=== PATIENT | male | born 1985 ===

== ENCOUNTER 2016-09-25 11:39 | Emergency (ER) | payer MEDICAID ==
[2016-09-25 12:09] VITALS: BP 112/67; PULSE 104; RESP 18; TEMP 99.3; O2SAT 98
--- NOTE | 2016-09-25 12:50 | ED PDOC ---
HPI: CCC, URI, Sore Throat Time Seen by Provider: 09/25/16 12:48 Chief Complaint (Nursing): ENT Problem Chief Complaint (Provider): sore throat History Per: Patient (31 y/o male h/o Cerebral Palsy /hypothyroid here with sore throat x 2 days. Has been spitting saliva due to pain but able to tolerate fluids as per mother. No vomiting/diarrhea. Mother does not want iv for him at this time.) Past Medical History Reviewed: Historical Data, Nursing Documentation, Vital Signs Vital Signs: Last Vital Signs Temp 99.3 F 09/25/16 12:05 Pulse 104 H 09/25/16 12:05 Resp 18 09/25/16 12:05 BP 112/67 09/25/16 12:05 Pulse Ox 98 09/25/16 12:50 - Medical History PMH: Hypothyroidism Denies: Chronic Kidney Disease - Surgical History Surgical History: Hernia Repair - Family History Family History: States: Unknown Family Hx - Home Medications Home Medications: Ambulatory Orders Medication Instructions Recorded Levothyroxine Sodium 175 mcg PO DAILY 02/17/14 Amoxicillin/Clavulanate [Augmentin 1 tab PO BID #14 tab 08/23/16 875 MG-125 MG] Ibuprofen [Motrin Tab] 600 mg PO Q8 PRN #60 tab 08/23/16 Ondansetron [Zofran] 4 mg PO Q8H PRN #30 tab 08/23/16 Amoxicillin 1 tab PO QID #30 tablet 09/25/16 Ibuprofen [Motrin] 1 tab PO Q8 PRN #21 tab 09/25/16 - Allergies Allergies/Adverse Reactions: Allergies Allergy/AdvReac Type Severity Reaction Status Date / Time Sulfa (Sulfonamide Allergy RASH Verified 08/23/16 15:18 Antibiotics) Review of Systems ROS Statement: Except As Marked, All Systems Reviewed And Found Negative ENT: Positive for: Throat Pain Physical Exam - Reviewed Nursing Documentation Reviewed: Yes Vital Signs Reviewed: Yes - Physical Exam Appears: Positive for: Well, Non-toxic, No Acute Distress Head Exam: Positive for: ATRAUMATIC, NORMAL INSPECTION, NORMOCEPHALIC Skin: Positive for: Normal Color, Warm, DRY Eye Exam: Positive for: EOMI, Normal appearance, PERRL ENT: Negative for: Normal ENT Inspection (petecchiae noted.) Neck: Positive for: Normal, Painless ROM Cardiovascular/Chest: Positive for: Regular Rate, Rhythm Respiratory: Positive for: CNT, Normal Breath Sounds Gastrointestinal/Abdominal: Positive for: Normal Exam, Bowel Sounds, Soft Back: Positive for: Normal Inspection Extremity: Positive for: Normal ROM Neurologic/Psych: Positive for: Alert, Oriented - ECG O2 Sat by Pulse Oximetry: 98 - Progress ED Course And Treament: Decadron 10 mg IM x 1 dose Motrin 600 mg x 1 dose Strep A positive. Patient feels improved. Disposition - Clinical Impression Clinical Impression: Pharyngitis - Patient ED Disposition Is Patient to be Admitted: No - Disposition Disposition: Routine/Home Disposition Time: 13:59 Condition: FAIR Prescriptions: Amoxicillin 1 tab PO QID #30 tablet Ibuprofen [Motrin] 1 tab PO Q8 PRN #21 tab PRN Reason: Pain, Moderate (4-7) Instructions: Strep Throat (ED) Forms: [facility] ED School/Work Excuse Print Language: AZERBAIJANI
== END 2016-09-25 14:34 | disposition home or self-care (01) ==
LOC: H.ER 11:39
DX: J02.9 Acute pharyngitis, unspecified (principal); G80.9 Cerebral palsy, unspecified

== ENCOUNTER 2017-06-04 15:32 | Emergency (ER) | payer MEDICAID ==
[2017-06-04 15:39] VITALS: BP 107/66; PULSE 88; RESP 16; TEMP 98.8; O2SAT 10
--- NOTE | 2017-06-04 16:05 | ED PDOC ---
HPI: CCC, URI, Sore Throat Chief Complaint (Nursing): ENT Problem Chief Complaint (Provider): ENT Problem History Per: Patient History/Exam Limitations: no limitations Onset/Duration Of Symptoms: Days (x 2) Current Symptoms Are (Timing): Still Present Location Of Pain: Throat Additional Complaint(s): 32 year old male who presents to the ED complaining of a sore throat, onset 2 days. Patient reports that he experiences pain with speaking and swallowing. Also reports a mild cough. Denies fever. PMD: non [facility] provider Past Medical History Reviewed: Historical Data, Nursing Documentation, Vital Signs Vital Signs: Last Vital Signs Temp 98.8 F 06/04/17 15:36 Pulse 88 06/04/17 15:36 Resp 16 06/04/17 15:36 BP 107/66 06/04/17 15:36 Pulse Ox 10 L 06/04/17 16:10 - Medical History PMH: Hypothyroidism Denies: Chronic Kidney Disease - Surgical History Surgical History: Hernia Repair - Family History Family History: States: Unknown Family Hx - Home Medications Home Medications: Ambulatory Orders Medication Instructions Recorded Levothyroxine Sodium 175 mcg PO DAILY 02/17/14 Amoxicillin/Clavulanate [Augmentin 1 tab PO BID #14 tab 08/23/16 875 MG-125 MG] Ibuprofen [Motrin Tab] 600 mg PO Q8 PRN #60 tab 08/23/16 Ondansetron [Zofran] 4 mg PO Q8H PRN #30 tab 08/23/16 Amoxicillin 1 tab PO QID #30 tablet 09/25/16 Ibuprofen [Motrin] 1 tab PO Q8 PRN #21 tab 09/25/16 Azithromycin [Zithromax] 250 mg PO DAILY #6 tab 06/04/17 - Allergies Allergies/Adverse Reactions: Allergies Allergy/AdvReac Type Severity Reaction Status Date / Time Sulfa (Sulfonamide Allergy RASH Verified 08/23/16 15:18 Antibiotics) Review of Systems ROS Statement: Except As Marked, All Systems Reviewed And Found Negative Constitutional: Negative for: Fever ENT: Positive for: Throat Pain (with speaking and swallowing) Respiratory: Positive for: Cough (mild) Physical Exam - Reviewed Nursing Documentation Reviewed: Yes Vital Signs Reviewed: Yes - Physical Exam Appears: Positive for: Non-toxic, No Acute Distress Head Exam: Positive for: ATRAUMATIC, NORMOCEPHALIC ENT: Positive for: TM Is/Are (fine), Pharyngeal Erythema, Other (lymphnode swelling; hoarness of voice). Negative for: Tonsillar Exudate - ECG O2 Sat by Pulse Oximetry: 10 (RA) Pulse Ox Interpretation: Normal - Progress ED Course And Treament: pt with negative strep. however exudates noted. mother advsied pt may have mono- mother opts to f.u with pmd. Pt will be given z-pack Orders Category Date Time Status THROAT CULTURE Stat Micro 06/04/17 16:20 Received RAPID STREP GROUP A ANTIGEN Stat Serology 06/04/17 16:20 Completed Medical Decision Making Medical Decision Making: Time: 16:04 --Rapid strep group Scribe Attestation: Documented by Hilda Gandara, acting as a scribe for Clover Waldrop PA-C Provider Scribe Attestation: All medical record entries made by the Scribe were at my direction and personally dictated by me. I have reviewed the chart and agree that the record accurately reflects my personal performance of the history, physical exam, medical decision making, and the department course for this patient. I have also personally directed, reviewed, and agree with the discharge instructions and disposition. Disposition - Clinical Impression Clinical Impression: Pharyngitis - Patient ED Disposition Is Patient to be Admitted: No Counseled Patient/Family Regarding: Need For Followup, Rx Given - Disposition Disposition: Routine/Home Disposition Time: 16:52 Condition: STABLE Prescriptions: Azithromycin [Zithromax] 250 mg PO DAILY #6 tab Instructions: Pharyngitis (ED) Print Language: WOLOF
== END 2017-06-04 17:25 | disposition home or self-care (01) ==
LOC: H.ER 15:32
DX: J02.9 Acute pharyngitis, unspecified (principal)

== ENCOUNTER 2017-06-10 11:18 | Emergency (ER) | payer MEDICAID ==
[2017-06-10 11:33] VITALS: BP 96/64; PULSE 72; RESP 18; TEMP 97.5; O2SAT 99
--- NOTE | 2017-06-10 11:49 | ED PDOC ---
HPI: CCC, URI, Sore Throat Time Seen by Provider: 06/10/17 11:31 Chief Complaint (Nursing): ENT Problem History Per: Patient, Family Additional Complaint(s): 32M c/o "itchy" throat for 3 days. per his mother he was here about a week ago for throat infection and was rx abx which he has finished. he has not had any fever, his pain seems to have improved, and his appetite has been normal. he also reports an "itchy" sensation around his lips and mouth. Past Medical History Vital Signs: Last Vital Signs Temp 97.5 F L 06/10/17 11:29 Pulse 72 06/10/17 11:29 Resp 18 06/10/17 11:29 BP 96/64 L 06/10/17 11:29 Pulse Ox 99 06/10/17 12:18 - Medical History PMH: Hypothyroidism Denies: Chronic Kidney Disease - Surgical History Surgical History: Hernia Repair - Family History Family History: States: Unknown Family Hx - Home Medications Home Medications: Ambulatory Orders Medication Instructions Recorded Levothyroxine Sodium 175 mcg PO DAILY 02/17/14 Amoxicillin/Clavulanate [Augmentin 1 tab PO BID #14 tab 08/23/16 875 MG-125 MG] Ibuprofen [Motrin Tab] 600 mg PO Q8 PRN #60 tab 08/23/16 Ondansetron [Zofran] 4 mg PO Q8H PRN #30 tab 08/23/16 Amoxicillin 1 tab PO QID #30 tablet 09/25/16 Ibuprofen [Motrin] 1 tab PO Q8 PRN #21 tab 09/25/16 Azithromycin [Zithromax] 250 mg PO DAILY #6 tab 06/04/17 - Allergies Allergies/Adverse Reactions: Allergies Allergy/AdvReac Type Severity Reaction Status Date / Time Sulfa (Sulfonamide Allergy RASH Verified 08/23/16 15:18 Antibiotics) Review of Systems Constitutional: Negative for: Fever, Chills, Malaise ENT: Negative for: Nose Congestion, Mouth Swelling, Throat Pain, Throat Swelling Respiratory: Negative for: Cough, Shortness of Breath Gastrointestinal: Negative for: Vomiting Physical Exam - Physical Exam Appears: Positive for: Well, No Acute Distress Head Exam: Positive for: ATRAUMATIC Skin: Positive for: Warm, Dry. Negative for: Rash Eye Exam: Positive for: PERRL. Negative for: Conjunctival injection ENT: Positive for: Pharyngeal Erythema (mild), Other (tonsils symmetric, uvual midline, no submental or sublingual induration, normal phonation, no trismus, handling secretions well. lips are dry and cracked). Negative for: Tonsillar Exudate, Tonsillar Swelling Neck: Positive for: Painless ROM (no KATHE), Supple Cardiovascular/Chest: Positive for: Regular Rate, Rhythm Respiratory: Negative for: Decreased Breath Sounds, Accessory Muscle Use, Crackles, Rales, Rhonchi, Stridor, Wheezing, Respiratory Distress Neurologic/Psych: Positive for: Alert, Oriented - ECG O2 Sat by Pulse Oximetry: 99 Medical Decision Making Medical Decision Making: there is no rash and no lesions or ulcers in the mouth to suggest SJS or TEN. he appears well without any fever or resp distress. his ENT is essentially normal with exception of mild pharyngeal erythema. no signs of abscess. disc w his mother results, plan for f/u, and rtr. she v/u and agrees w plan. Disposition - Clinical Impression Clinical Impression: Throat irritation - Disposition Disposition Time: 13:13 Condition: GOOD Forms: [facility] (Swazi)
== END 2017-06-10 14:30 | disposition home or self-care (01) ==
LOC: H.ER 11:18
DX: J02.9 Acute pharyngitis, unspecified (principal); E03.9 Hypothyroidism, unspecified

== ENCOUNTER 2018-07-01 07:55 | Emergency (ER) | payer MEDICAID ==
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
--- NOTE | 2018-07-01 09:15 | CT ---
Date of service: 07/01/2018 PROCEDURE: CT HEAD WITHOUT CONTRAST. HISTORY: r/o bleed COMPARISON: None available. TECHNIQUE: Axial computed tomography images were obtained through the head/brain without intravenous contrast. Radiation dose: Total exam DLP = 797.15 mGy-cm. This CT exam was performed using one or more of the following dose reduction techniques: Automated exposure control, adjustment of the mA and/or kV according to patient size, and/or use of iterative reconstruction technique. FINDINGS: HEMORRHAGE: No intracranial hemorrhage. BRAIN: Normal parish-white matter differentiation and density are appreciated throughout the cerebrum and cerebellum with the brainstem appearing unremarkable as well. There is no mass effect. There is no suspicious extra-axial fluid collection and the midline brain anatomy appears diffusely unremarkable. VENTRICLES: Unremarkable. No hydrocephalus. CALVARIUM: No destructive bony lesion or displaced fracture identified including through the skullbase. PARANASAL SINUSES: Unremarkable as visualized. No significant inflammatory changes. MASTOID AIR CELLS: Unremarkable as visualized. No inflammatory changes. OTHER FINDINGS: None. IMPRESSION: Unremarkable noncontrast CT of the Head.
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
[2018-07-01 10:05] VITALS: BP 110/70; PULSE 80; RESP 18; TEMP 99; O2SAT 99
== END 2018-07-01 10:05 | disposition home or self-care (01) ==
LOC: H.ER 07:55
DX: S00.83XA Contusion of other part of head, initial encounter (principal); V43.62XA Car passenger injured in collision with other type car in traffic accident, initial encounter; Y92.410 Unspecified street and highway as the place of occurrence of the external cause; Q90.9 Down syndrome, unspecified; E03.9 Hypothyroidism, unspecified

== ENCOUNTER 2018-08-30 08:07 | Emergency (ER) | payer MEDICAID ==
[2018-08-30 08:10] VITALS: BMI 25.6
--- NOTE | 2018-08-30 09:04 | ED PDOC ---
HPI: General Adult Time Seen by Provider: 08/30/18 08:12 Chief Complaint (Provider): Cough, Cold, Congestion History Per: Patient, Family History/Exam Limitations: no limitations Onset/Duration Of Symptoms: Days (x2) Current Symptoms Are (Timing): Still Present Additional Complaint(s): 33 year old male with a past medical history of heart murmurs, diabetes, colitis, and hemorrhoids who is presenting to the ED for evaluation of 2 days of throat pain, cough, congestion, and runny nose. Patient also notes that he has blood in the ear but denies any injury or use of Q-tip. He also denies any nausea, vomiting, or diarrhea and admits that he is allergic to Sulfa. Patient offers no other medical complaints at this time. No chest pain, dyspnea, weakness, head injury. PMD: none provided Past Medical History Reviewed: Historical Data, Nursing Documentation, Vital Signs Vital Signs: Last Vital Signs Temp 98.6 F 08/30/18 08:10 Pulse 98 H 08/30/18 08:10 Resp 17 08/30/18 08:10 BP 113/76 08/30/18 08:10 Pulse Ox 97 08/30/18 08:10 - Medical History PMH: Hypothyroidism Denies: Chronic Kidney Disease Other PMH: heart murmurs, colitis, and hemorrhoids - Surgical History Surgical History: Hernia Repair - Family History Family History: States: Unknown Family Hx - Social History Current smoker - smoking cessation education provided: No Alcohol: None Drugs: Denies - Home Medications Home Medications: Ambulatory Orders Medication Instructions Recorded Levothyroxine Sodium 175 mcg PO DAILY 02/17/14 Amoxicillin/Clavulanate [Augmentin 1 tab PO BID #14 tab 08/23/16 875 MG-125 MG] Ibuprofen [Motrin Tab] 600 mg PO Q8 PRN #60 tab 08/23/16 Ondansetron [Zofran] 4 mg PO Q8H PRN #30 tab 08/23/16 Amoxicillin 1 tab PO QID #30 tablet 09/25/16 Ibuprofen [Motrin] 1 tab PO Q8 PRN #21 tab 09/25/16 Azithromycin [Zithromax] 250 mg PO DAILY #6 tab 06/04/17 Naproxen [Naprosyn] 500 mg PO Q12H #20 tab 07/01/18 Amoxicillin/Clavulanate [Augmentin 1 tab PO BID 7 Days tab 08/30/18 875 MG-125 MG] - Allergies Allergies/Adverse Reactions: Allergies Allergy/AdvReac Type Severity Reaction Status Date / Time Sulfa (Sulfonamide Allergy RASH Verified 07/01/18 08:22 Antibiotics) Review of Systems ROS Statement: Except As Marked, All Systems Reviewed And Found Negative ENT: Positive for: Ear Discharge, Nose Pain, Nose Congestion, Throat Pain, Other (blood in ear ) Respiratory: Positive for: Cough Gastrointestinal: Negative for: Nausea, Vomiting, Diarrhea Physical Exam - Reviewed Nursing Documentation Reviewed: Yes Vital Signs Reviewed: Yes - Physical Exam Appears: Positive for: Non-toxic, No Acute Distress Head Exam: Positive for: ATRAUMATIC, NORMAL INSPECTION, NORMOCEPHALIC Skin: Positive for: Normal Color, Warm, DRY Eye Exam: Positive for: EOMI, Normal appearance, PERRL ENT: Positive for: Pharynx Is (clear ), TM Is/Are (Left TM normal; Right TM: dried blood in entrance of canal, possible perforation of TM, no tenderness to external ear), Pharyngeal Erythema (mild ), Other (no uvular deviation). Negative for: Tonsillar Exudate, Tonsillar Swelling Neck: Positive for: Normal, Painless ROM, Supple Cardiovascular/Chest: Positive for: Regular Rate, Rhythm Respiratory: Positive for: Normal Breath Sounds. Negative for: Respiratory Distress Gastrointestinal/Abdominal: Positive for: Normal Exam, Soft. Negative for: Tenderness Back: Positive for: Normal Inspection. Negative for: L CVA Tenderness, R CVA Tenderness Extremity: Positive for: Normal ROM. Negative for: Deformity, Swelling Neurological/Psych: Positive for: Awake, Alert, Normal Tone. Negative for: Motor/Sensory Deficits - Laboratory Results Interpretation Of Abn Labs: neg strep - ECG O2 Sat by Pulse Oximetry: 97 (RA) Pulse Ox Interpretation: Normal - Progress ED Course And Treament: 1000: Stable. AAOx3. Pain free. Tolerated PO. FU with pcp and ent. Medical Decision Making Medical Decision Making: Time: 8:27 Plan: --Motrin 600 mg PO --Rapid Strep Scribe Attestation: Documented by Lisbet Jane, acting as a scribe for William Adame MD. Provider Scribe Attestation: All medical record entries made by the Scribe were at my direction and personally dictated by me. I have reviewed the chart and agree that the record accurately reflects my personal performance of the history, physical exam, medical decision making, and the department course for this patient. I have also personally directed, reviewed, and agree with the discharge instructions and disposition. Disposition - Clinical Impression Clinical Impression: Rupture of left tympanic membrane, Otitis media - Patient ED Disposition Is Patient to be Admitted: No Counseled Patient/Family Regarding: Studies Performed, Diagnosis, Need For Followup, Rx Given - Disposition Referrals: Jamir Burton MD [Staff Provider] - 08/31/18 formerly [facility] [Outside] - 08/31/18 Disposition: Routine/Home Disposition Time: 09:00 Condition: STABLE Additional Instructions: Return if not better in 3 days. See the specialist without fail in 3 days. Regreso si no mejor en 3 solorio. Consulte al especialista sin falta en 3 solorio. Prescriptions: Amoxicillin/Clavulanate [Augmentin 875 MG-125 MG] 1 tab PO BID 7 Days tab Instructions: Ear Infections (Otitis Media), Ruptured Eardrum Print Language: LITHUANIAN
[2018-08-30 10:33] VITALS: BP 103/67; PULSE 87; RESP 18; TEMP 98.5; O2SAT 99
== END 2018-08-30 10:30 | disposition home or self-care (01) ==
LOC: H.ER 08:07
DX: H72.92 Unspecified perforation of tympanic membrane, left ear (principal); E03.9 Hypothyroidism, unspecified; E11.9 Type 2 diabetes mellitus without complications; Z88.2 Allergy status to sulfonamides

== ENCOUNTER 2018-09-09 07:12 | Emergency (ER) | payer MEDICAID ==
[2018-09-09 07:12] VITALS: BMI 25.6
[2018-09-09 07:37] VITALS: RESP 18
--- NOTE | 2018-09-09 08:26 | ED PDOC ---
HPI: Back Time Seen by Provider: 09/09/18 07:26 Chief Complaint (Nursing): Back Pain Chief Complaint (Provider): Back Pain History Per: Patient, Family, [employer] ([id number]) History/Exam Limitations: no limitations Onset/Duration Of Symptoms: Days Current Symptoms Are (Timing): Still Present Previous Symptoms: Back Pain Additional Complaint(s): 33 year old male with a past medical history of hypothyroidism, diabetes, and colitis who was brought to the ED by mother for evaluation of right hip and lower back pain ongoing since yesterday morning. History as per mother who states that patient has had no similar episodes in the past and reports that she has been giving him Tylenol with, minimal relief. His last dose of Tylenol was this morning. Patient denies any dysuria or hematuria and offers no other medical complaints at this time. Of note, patient is allergic to Sulfa. PMD: Angelo Zavaleta Past Medical History Reviewed: Historical Data, Nursing Documentation, Vital Signs Vital Signs: Last Vital Signs Temp 97.9 F 09/09/18 07:20 Pulse 84 09/09/18 07:20 Resp 18 09/09/18 07:20 BP 106/70 09/09/18 07:20 Pulse Ox 98 09/09/18 07:20 - Medical History PMH: Diabetes, Hypothyroidism Denies: Chronic Kidney Disease - Surgical History Surgical History: Hernia Repair - Family History Family History: States: Unknown Family Hx - Social History Current smoker - smoking cessation education provided: No Alcohol: None Drugs: Denies - Home Medications Home Medications: Ambulatory Orders Medication Instructions Recorded Levothyroxine Sodium 175 mcg PO DAILY 02/17/14 Amoxicillin/Clavulanate [Augmentin 1 tab PO BID #14 tab 08/23/16 875 MG-125 MG] Ibuprofen [Motrin Tab] 600 mg PO Q8 PRN #60 tab 08/23/16 Ondansetron [Zofran] 4 mg PO Q8H PRN #30 tab 08/23/16 Amoxicillin 1 tab PO QID #30 tablet 09/25/16 Ibuprofen [Motrin] 1 tab PO Q8 PRN #21 tab 09/25/16 Azithromycin [Zithromax] 250 mg PO DAILY #6 tab 06/04/17 Naproxen [Naprosyn] 500 mg PO Q12H #20 tab 07/01/18 Amoxicillin/Clavulanate [Augmentin 1 tab PO BID 7 Days tab 08/30/18 875 MG-125 MG] Ibuprofen [Motrin] 600 mg PO Q6H PRN #20 tab 09/09/18 - Allergies Allergies/Adverse Reactions: Allergies Allergy/AdvReac Type Severity Reaction Status Date / Time Sulfa (Sulfonamide Allergy RASH Verified 07/01/18 08:22 Antibiotics) Review of Systems ROS Statement: Except As Marked, All Systems Reviewed And Found Negative Genitourinary Male: Negative for: Dysuria, Hematuria Musculoskeletal: Positive for: Back Pain, Other (Hip Pain ) Physical Exam - Reviewed Nursing Documentation Reviewed: Yes Vital Signs Reviewed: Yes - Physical Exam Appears: Positive for: Non-toxic, No Acute Distress Head Exam: Positive for: ATRAUMATIC, NORMAL INSPECTION, NORMOCEPHALIC Eye Exam: Positive for: Normal appearance Neck: Positive for: Normal, Painless ROM Cardiovascular/Chest: Positive for: Regular Rate, Rhythm Respiratory: Positive for: Normal Breath Sounds. Negative for: Respiratory Distress Gastrointestinal/Abdominal: Positive for: Normal Exam, Soft. Negative for: Tenderness Back: Positive for: Other (tenderness to midline lumbar, able to ambulate ). Negative for: L CVA Tenderness, R CVA Tenderness, Vertebral Tenderness Extremity: Positive for: Normal ROM. Negative for: Deformity, Swelling Neurological/Psych: Positive for: Awake, Alert, Normal Tone. Negative for: Motor/Sensory Deficits - ECG O2 Sat by Pulse Oximetry: 98 (RA) Pulse Ox Interpretation: Normal Medical Decision Making Medical Decision Making: Time: 8:00 Plan: --ED Urine Dipstick --X-Ray Lumbar Spine Accession No. : [id number] Patient Name / ID : XAVIER COVARRUBIAS / [id number] Exam Date : 09/09/2018 08:06:02 ( Approved ) Study Comment : Sex / Age : M / 33Y Creator : Garry Salas MD Dictator : Garry Salas MD Journeyman Welder : Game Author : Garry Salas MD Approver2 : Report Date : 09/09/2018 10:10:08 My Comment : Date of service: 09/09/2018 PROCEDURE: Radiographs of the Lumbar Spine. HISTORY: Midline low back pain COMPARISON: No prior. FINDINGS: BONES: No acute fractures. No evidence of listhesis. Mild levoscoliosis centered at the L3-L4 level. DISC SPACES: Disc space heights maintained. Exit foramina appear adequate OTHER FINDINGS: None. IMPRESSION: No fractures. Mild levoscoliosis centered at the L3-L4 level. Scribe Attestation: Documented by Lisbet Jane, acting as a scribe for Annabel Oreilly MD. Provider Scribe Attestation: All medical record entries made by the Scribe were at my direction and personally dictated by me. I have reviewed the chart and agree that the record accurately reflects my personal performance of the history, physical exam, medical decision making, and the department course for this patient. I have also personally directed, reviewed, and agree with the discharge instructions and disposition. Disposition - Clinical Impression Clinical Impression: Low back pain - Disposition Disposition: Routine/Home Disposition Time: 11:10 Condition: STABLE Additional Instructions: FOLLOW-UP WITH PMD WITHIN 2 DAYS FOR REEVALUATION. Prescriptions: Ibuprofen [Motrin] 600 mg PO Q6H PRN #20 tab PRN Reason: Pain, Moderate (4-7) Instructions: Low Back Pain in Adults Forms: [employer] (Djiboutian) Print Language: BULGARIAN
--- NOTE | 2018-09-09 10:13 | RAD ---
Date of service: 09/09/2018 PROCEDURE: Radiographs of the Lumbar Spine. HISTORY: Midline low back pain COMPARISON: No prior. FINDINGS: BONES: No acute fractures. No evidence of listhesis. Mild levoscoliosis centered at the L3-L4 level. DISC SPACES: Disc space heights maintained. Exit foramina appear adequate OTHER FINDINGS: None. IMPRESSION: No fractures. Mild levoscoliosis centered at the L3-L4 level.
[2018-09-09 10:16] VITALS: BP 107/66; PULSE 88; TEMP 98.6
[2018-09-11 11:24] VITALS: O2SAT 98
== END 2018-09-09 11:51 | disposition home or self-care (01) ==
LOC: H.ER 07:12
DX: M54.5 Low back pain (principal); E11.9 Type 2 diabetes mellitus without complications; Z88.2 Allergy status to sulfonamides; E03.9 Hypothyroidism, unspecified